=== PATIENT | female | born 1955 | race Caucasian/White ===

== ENCOUNTER → 2017-12-24 | Outpatient (CLI) | payer BC ==
[2017-12-24 09:39] LABS: CREATININE 0.77 mg/dL (0.55-1.02)
--- NOTE | 2017-12-24 10:51 | CT ---
Examination: CT of the abdomen and pelvis with contrast. Clinical History: Abdominal pain. Technique: Multiple axial images were obtained from the lung bases down to the pubic symphysis follow ing the intravenous administration of 99 ml of Omnipaque 350. Oral contrast was also administered. Do se reduction techniques including automated exposure control (AEC) and adjustment of mA and kV were u tilized. Comparison: None available. Findings: The study was degraded by motion artifact. The visualized portion of the lung bases is unremarkable. The liver, spleen, pancreas, gallbladder, adrenal glands and kidneys are normal in appearance. 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 The abdominal aorta is normal in caliber. The bowel gas pattern is non-obstructive. There is no free air. The colon is within normal limits. The small bowel is grossly unremarkable. The appendix is visualized and is normal in appearance. The bladder and uterus are within normal limits. No pelvic mass or fluid collection is noted. No enlarged lymph nodes, by CT criteria, are noted in the mesenteric, periaortic or deep pelvic regio ns. Mild degenerative changes are noted in the spine. No acute osseous abnormality is noted. Impression: 1. No acute intra-abdominal pathology is noted. The study was degraded by motion artifact. Reported By:
== END ==
LOC: RAD 08:51
PROVIDERS: ATTEND Internal Medicine
DX: R19.4 Change in bowel habit (principal); R10.84 Generalized abdominal pain; E11.9 Type 2 diabetes mellitus without complications; R19.07 Generalized intra-abdominal and pelvic swelling, mass and lump
CPT/HCPCS: 36415; 74177; 82565; 84520; A4222

== ENCOUNTER 2018-02-11 07:06 | Day surgery (SDC) | payer BC ==
[2018-02-11] MEDS ORDERED: D5 LR 1000 ML 1,000 ML IV ONE (07:24)
[2018-02-11] MEDS ORDERED: DIPRIVAN VIAL 20 ML ONE (08:13)
[2018-02-11 09:25] VITALS: BP 134/61
== END 2018-02-11 08:50 | disposition home or self-care (01) ==
LOC: SURG1 07:06
PROVIDERS: ATTEND Internal Medicine Gastroenterology
PROC: 0DJ08ZZ Inspection of Upper Intestinal Tract, Via Natural or Artificial Opening Endoscopic (ICD-10-PCS; principal; 2018-02-11 09:15)
PROC: 0DB68ZX Excision of Stomach, Via Natural or Artificial Opening Endoscopic, Diagnostic (ICD-10-PCS; principal; 2018-02-11 09:15)
PROC: 0DB88ZX Excision of Small Intestine, Via Natural or Artificial Opening Endoscopic, Diagnostic (ICD-10-PCS; principal; 2018-02-11 09:15)
DX: R10.13 Epigastric pain (principal); R10.11 Right upper quadrant pain; K21.9 Gastro-esophageal reflux disease without esophagitis; K25.9 Gastric ulcer, unspecified as acute or chronic, without hemorrhage or perforation; K29.60 Other gastritis without bleeding; K22.2 Esophageal obstruction; K44.9 Diaphragmatic hernia without obstruction or gangrene; K20.8 Other esophagitis; B96.81 Helicobacter pylori [H. pylori] as the cause of diseases classified elsewhere
CPT/HCPCS: A4217; J3490; J7120